=== PATIENT | female | born 1940 | race Caucasian/White ===

== ENCOUNTER 2017-08-27 19:59 | Inpatient (IN) | payer MEDICARE ==
[~2017-08-27] VITALS: Ht 162.6 cm; Wt 56.5 kg
[~2017-08-27 19:59] MED LIST: AMIT75 PO; ATOR10 PO; CLOP75 PO; LISI5 PO; OMEPRAZOLE MAGN20 MG PO; PARO20 PO; PERP2 PO; SULAR PO; ULTRA-LIGHT RO1 EACH XX
[2017-08-27 20:53] LABS: BASOPHILS ABSOLUTE AUTO 0.05 K/mm3 (0.00-0.23); BASOPHILS PERCENT AUTO 1 % (0-2); EOSINOPHILS ABSOLUTE AUTO 0.28 K/mm3 (0.00-0.68); EOSINOPHILS PERCENT AUTO 3 % (0-6); Hematocrit 38.5 % (33.0-51.0); IMMATURE GRAN ABSOLUTE AUTO 0.03 K/mm3 (0.00-0.10); IMMATURE GRAN PERCENT AUTO 0 % (0-1); LYMPHOCYTES ABSOLUTE AUTO 3.04 K/mm3 (0.84-5.20); LYMPHOCYTES PERCENT AUTO 31 % (21-46); MONOCYTES ABSOLUTE AUTO 0.59 K/mm3 (0.16-1.47); MONOCYTES PERCENT AUTO 6 % (4-13); Mean Corpuscular HGB 30.4 pg (26.0-34.0); Mean Corpuscular HGB Conc 33.8 g/dL (31.5-36.5); Mean Corpuscular Volume 90 fL (80-100); Mean Platelet Volume 10.2 fL (9.1-12.4); NEUTROPHILS ABSOLUTE AUTO 5.86 K/mm3 (1.96-9.15); NEUTROPHILS PERCENT AUTO 60 % (41-73); Platelet Count 219 K/mm3 (150-400); RDW Coefficient Variation 12.9 % (11.7-14.2); RDW Standard Deviation 42.7 fL (35.1-46.3); Red Blood Cell Count 4.27 M/mm3 (3.80-5.20); White Blood Cell Count 9.85 K/mm3 (4.00-11.30)
[2017-08-27 21:10] LABS: Albumin, Blood 3.4 g/dL (3.4-5.0); Albumin/Globulin Ratio 0.9 (0.8-1.8); Bilirubin, Total 0.3 mg/dL (0.1-1.0); Bun/Creatinine Ratio 14.4 (12.0-20.0); Calcium, Blood 9.1 mg/dL (8.5-10.1); Creatinine, Blood 2.43 mg/dL (0.40-1.00); Globulin, Blood 3.8 g/dL (2.2-4.0); Potassium, Blood 4.3 mmol/L (3.5-5.5); Total Protein, Blood 7.2 g/dL (6.4-8.2)
[2017-08-27] MEDS ORDERED: AMIT50 PO (22:33)
[2017-08-27] MEDS ORDERED: CIPR250 PO (22:35)
[2017-08-27 23:14] LABS: Source, Urine Clean Catch
[2017-08-27 23:19] LABS: Appearance, Urine Cloudy (Clear); Bilirubin, Urine Neg (Neg); Blood, Urine 3+ (Neg); Color, Urine Yellow (P-Yellow); Glucose Qualitative, Urine Neg (Neg); Ketones, Urine Neg (Neg); Leukocyte Esterase, Urine 3+ (Neg); Nitrite, Urine Neg (Neg); Protein, Urine 3+ (Neg); Urobilinogen, Urine NORM (Normal)
[2017-08-27 23:28] LABS: Bacteria Mod /hpf; Red Blood Cells, Urine 0-2 /hpf (0-2); Squamous Epithelial Cells Mod /hpf (Few); Transitional Epithelial Cells Mod /hpf (0-Rare); White Blood Cells, Urine TNTC /hpf (0-5)
[2017-08-28] MEDS ORDERED: ACET325 PO (02:26)
[2017-08-28 06:08] LABS: BASOPHILS ABSOLUTE AUTO 0.03 K/mm3 (0.00-0.23); BASOPHILS PERCENT AUTO 0 % (0-2); EOSINOPHILS ABSOLUTE AUTO 0.28 K/mm3 (0.00-0.68); EOSINOPHILS PERCENT AUTO 4 % (0-6); Hematocrit 35.5 % (33.0-51.0); Hemoglobin 11.7 g/dL (11.5-16.0); IMMATURE GRAN ABSOLUTE AUTO 0.02 K/mm3 (0.00-0.10); IMMATURE GRAN PERCENT AUTO 0 % (0-1); LYMPHOCYTES ABSOLUTE AUTO 2.36 K/mm3 (0.84-5.20); LYMPHOCYTES PERCENT AUTO 33 % (21-46); MONOCYTES ABSOLUTE AUTO 0.51 K/mm3 (0.16-1.47); MONOCYTES PERCENT AUTO 7 % (4-13); Mean Corpuscular HGB 30.4 pg (26.0-34.0); Mean Corpuscular Volume 92 fL (80-100); Mean Platelet Volume 10.1 fL (9.1-12.4); NEUTROPHILS ABSOLUTE AUTO 3.94 K/mm3 (1.96-9.15); NEUTROPHILS PERCENT AUTO 55 % (41-73); Platelet Count 192 K/mm3 (150-400); RDW Standard Deviation 43.8 fL (35.1-46.3); Red Blood Cell Count 3.85 M/mm3 (3.80-5.20); White Blood Cell Count 7.14 K/mm3 (4.00-11.30)
[2017-08-28 06:31] LABS: Albumin, Blood 2.8 g/dL (3.4-5.0); Albumin/Globulin Ratio 0.9 (0.8-1.8); Bilirubin, Total 0.2 mg/dL (0.1-1.0); Bun/Creatinine Ratio 14.2 (12.0-20.0); Calcium, Blood 8.7 mg/dL (8.5-10.1); Creatinine, Blood 2.25 mg/dL (0.40-1.00); Globulin, Blood 3.2 g/dL (2.2-4.0); Potassium, Blood 4.1 mmol/L (3.5-5.5)
[2017-08-29 06:12] LABS: Bun/Creatinine Ratio 11.4 (12.0-20.0); Calcium, Blood 9.5 mg/dL (8.5-10.1); Creatinine, Blood 2.01 mg/dL (0.40-1.00); Potassium, Blood 3.9 mmol/L (3.5-5.5)
[2017-08-30] MEDS ORDERED: CEFU500T30 PO ×2 (12:21→12:54)
[2017-08-30] MEDS ORDERED: NICO21TP TOP (12:21)
[2017-08-30] MEDS ORDERED: OLAN5 PO (12:21)
== END 2017-09-01 16:58 | disposition home health service (06) | DRG 689 ==
LOC: ER 19:59 → MEDS 08-28 00:36 → ENPENDDIS 08-31 11:16 → MEDS 08-31 21:42 → EDPENDDIS 09-01 09:00 → EDPENDDISTM 09-01 09:00 → EDPENDDISDT 09-01 09:00 → MEDS 09-01 16:58
PROVIDERS: Emergency Medicine; Internal Medicine
DX: N39.0 Urinary tract infection, site not specified (principal); G93.41 Metabolic encephalopathy; N18.4 Chronic kidney disease, stage 4 (severe); E11.22 Type 2 diabetes mellitus with diabetic chronic kidney disease; E86.0 Dehydration; B96.20 Unspecified Escherichia coli [E. coli] as the cause of diseases classified elsewhere; I12.9 Hypertensive chronic kidney disease with stage 1 through stage 4 chronic kidney disease, or unspecified chronic kidney disease; F32.9 Major depressive disorder, single episode, unspecified; F41.9 Anxiety disorder, unspecified; F03.90 Unspecified dementia, unspecified severity, without behavioral disturbance, psychotic disturbance, mood disturbance, and anxiety; F17.210 Nicotine dependence, cigarettes, uncomplicated; Z87.440 Personal history of urinary (tract) infections; Z79.02 Long term (current) use of antithrombotics/antiplatelets; Z79.899 Other long term (current) drug therapy; Z86.718 Personal history of other venous thrombosis and embolism; Z99.2 Dependence on renal dialysis
CPT/HCPCS: 36415; 71045; 80048; 80053; 81001; 83605; 85025; 87040; 87077; 87086; 87186; 96361; 96374; 97161; 97166; 97530; 97535; 99285; G8978; G8979; G8987; G8988; J0696; J1650; J2060; J3010; J7030

== ENCOUNTER → 2017-10-05 | Outpatient (CLI) | payer MEDICARE ==
[~2017-10-05] MED LIST changes: +ACET325 PO; +AMIT50 PO; +CEFU500T30 PO; +CETI5 PO; +CIPR250 PO; +DOXY100 PO; +NICO21TP TOP; +NISOLDIPINE34 MG PO; +OLAN5 PO; +PRED20 PO
[2017-10-05 18:25] LABS: Source, Urine Clean Catch
[2017-10-05 18:39] LABS: Appearance, Urine Clear (Clear); Bilirubin, Urine Neg (Neg); Blood, Urine Neg (Neg); Color, Urine Yellow (P-Yellow); Glucose Qualitative, Urine Neg (Neg); Ketones, Urine Neg (Neg); Leukocyte Esterase, Urine Neg (Neg); Nitrite, Urine Neg (Neg); Protein, Urine 1+ (Neg); Urobilinogen, Urine NORM (Normal); pH, Urine 6.5 (5.0-8.0)
== END ==
LOC: LAB SHORT 13:22 → LAB 13:22
PROVIDERS: Family Medicine
DX: N39.0 Urinary tract infection, site not specified (principal)
CPT/HCPCS: 81003

== ENCOUNTER → 2017-10-09 | Outpatient (CLI) | payer MEDICARE ==
[~2017-10-09] MED LIST changes: +AMLO5 PO; +ATEN25 PO; +BUME2 PO; +CYAN1000I PO; +GABA100 PO; +HYDHCL25 PO; +HYDR10 PO; +Keflex500 MG PO; +LISI20 PO; +MELATIN3 MG PO; +METO25ER PO; +OLAN10 PO; +Omeprazole20 M1 PO; +PARO10 PO; +POTA10T PO; +SODBIC650 PO; +Tylenol325 MG PO
[2017-10-09 16:27] LABS: BASOPHILS ABSOLUTE AUTO 0.07 K/mm3 (0.00-0.23); BASOPHILS PERCENT AUTO 1 % (0-2); EOSINOPHILS PERCENT AUTO 5 % (0-6); Hemoglobin 11.7 g/dL (11.5-16.0); IMMATURE GRAN ABSOLUTE AUTO 0.05 K/mm3 (0.00-0.10); IMMATURE GRAN PERCENT AUTO 0 % (0-1); LYMPHOCYTES ABSOLUTE AUTO 3.08 K/mm3 (0.84-5.20); LYMPHOCYTES PERCENT AUTO 22 % (21-46); MONOCYTES ABSOLUTE AUTO 0.71 K/mm3 (0.16-1.47); MONOCYTES PERCENT AUTO 5 % (4-13); Mean Corpuscular HGB 30.2 pg (26.0-34.0); Mean Corpuscular HGB Conc 32.5 g/dL (31.5-36.5); Mean Corpuscular Volume 93 fL (80-100); Mean Platelet Volume 10.6 fL (9.1-12.4); NEUTROPHILS ABSOLUTE AUTO 9.59 K/mm3 (1.96-9.15); NEUTROPHILS PERCENT AUTO 68 % (41-73); Platelet Count 259 K/mm3 (150-400); RDW Coefficient Variation 13.7 % (11.7-14.2); RDW Standard Deviation 46.3 fL (35.1-46.3); Red Blood Cell Count 3.88 M/mm3 (3.80-5.20)
[2017-10-09 16:50] LABS: Albumin, Blood 3.7 g/dL (3.4-5.0); Albumin/Globulin Ratio 0.9 (0.8-1.8); Bilirubin, Total 0.3 mg/dL (0.1-1.0); Bun/Creatinine Ratio 19.9 (12.0-20.0); Calcium, Blood 8.9 mg/dL (8.5-10.1); Creatinine, Blood 2.92 mg/dL (0.40-1.00); Globulin, Blood 3.9 g/dL (2.2-4.0); Potassium, Blood 4.9 mmol/L (3.5-5.5); Total Protein, Blood 7.6 g/dL (6.4-8.2)
== END | disposition home or self-care (01) ==
LOC: LAB SHORT 16:18 → LAB 16:18
PROVIDERS: Nurse Practitioner
DX: N39.0 Urinary tract infection, site not specified (principal); R51 Headache
CPT/HCPCS: 80053; 85025; 87077; 87086; 87186

== ENCOUNTER 2017-11-25 17:38 | Emergency (ER) | payer MEDICARE ==
[~2017-11-25] VITALS: Ht 157.5 cm; Wt 63.5 kg
[~2017-11-25 17:38] MED LIST changes: -AMLO5 PO; -ATEN25 PO; -BUME2 PO; -CETI5 PO; -CYAN1000I PO; -DOXY100 PO; -GABA100 PO; -HYDHCL25 PO; -HYDR10 PO; -Keflex500 MG PO; -LISI20 PO; -MELATIN3 MG PO; -METO25ER PO; -NISOLDIPINE34 MG PO; -OLAN10 PO; -Omeprazole20 M1 PO; -PARO10 PO; -POTA10T PO; -PRED20 PO; -SODBIC650 PO; -Tylenol325 MG PO
[2017-11-25] MEDS ORDERED: CETI5 PO (18:03)
[2017-11-25] MEDS ORDERED: DOXY100 PO (18:05)
[2017-11-25] MEDS ORDERED: NISOLDIPINE34 MG PO (18:05)
[2017-11-25] MEDS ORDERED: PARO20 PO (18:05)
[2017-11-25] MEDS ORDERED: PRED20 PO (18:06)
[2017-11-25 18:09] LABS: BASOPHILS ABSOLUTE AUTO 0.01 K/mm3 (0.00-0.23); BASOPHILS PERCENT AUTO 0 % (0-2); EOSINOPHILS ABSOLUTE AUTO 0.01 K/mm3 (0.00-0.68); EOSINOPHILS PERCENT AUTO 0 % (0-6); Hematocrit 32.6 % (33.0-51.0); Hemoglobin 10.9 g/dL (11.5-16.0); IMMATURE GRAN ABSOLUTE AUTO 0.06 K/mm3 (0.00-0.10); IMMATURE GRAN PERCENT AUTO 1 % (0-1); LYMPHOCYTES PERCENT AUTO 14 % (21-46); MONOCYTES ABSOLUTE AUTO 0.38 K/mm3 (0.16-1.47); MONOCYTES PERCENT AUTO 4 % (4-13); Mean Corpuscular HGB 31.2 pg (26.0-34.0); Mean Corpuscular HGB Conc 33.4 g/dL (31.5-36.5); Mean Corpuscular Volume 93 fL (80-100); Mean Platelet Volume 10.7 fL (9.1-12.4); NEUTROPHILS ABSOLUTE AUTO 7.86 K/mm3 (1.96-9.15); NEUTROPHILS PERCENT AUTO 82 % (41-73); Platelet Count 230 K/mm3 (150-400); RDW Coefficient Variation 13.2 % (11.7-14.2); RDW Standard Deviation 45.7 fL (35.1-46.3); Red Blood Cell Count 3.49 M/mm3 (3.80-5.20); White Blood Cell Count 9.62 K/mm3 (4.00-11.30)
[2017-11-25 18:27] LABS: Bun/Creatinine Ratio 23.5 (12.0-20.0); Calcium, Blood 8.2 mg/dL (8.5-10.1); Creatinine, Blood 3.19 mg/dL (0.40-1.00); Potassium, Blood 5.2 mmol/L (3.5-5.5)
[2017-11-25 20:23] LABS: Source, Urine Clean Catch
[2017-11-25 20:29] LABS: Appearance, Urine Clear (Clear); Bilirubin, Urine Neg (Neg); Blood, Urine Neg (Neg); Color, Urine Yellow (P-Yellow); Glucose Qualitative, Urine Neg (Neg); Ketones, Urine Neg (Neg); Leukocyte Esterase, Urine Neg (Neg); Nitrite, Urine Neg (Neg); Protein, Urine 2+ (Neg); Urobilinogen, Urine NORM (Normal)
[2017-11-25 20:40] LABS: Squamous Epithelial Cells Few /hpf (Few); Transitional Epithelial Cells Few /hpf (0-Rare)
[2017-11-25 20:41] LABS: Bacteria Not Seen /hpf; Red Blood Cells, Urine 0-2 /hpf (0-2)
== END 2017-11-25 22:43 | disposition home or self-care (01) ==
LOC: ER 17:38
PROVIDERS: Emergency Medicine
DX: I12.9 Hypertensive chronic kidney disease with stage 1 through stage 4 chronic kidney disease, or unspecified chronic kidney disease (principal); N18.4 Chronic kidney disease, stage 4 (severe); Z79.899 Other long term (current) drug therapy; Z79.2 Long term (current) use of antibiotics; F32.9 Major depressive disorder, single episode, unspecified; F17.200 Nicotine dependence, unspecified, uncomplicated
CPT/HCPCS: 36415; 80048; 81001; 85025; 96360; 99283; J7030

== ENCOUNTER 2017-12-09 10:45 | Emergency (ER) | payer MEDICARE ==
[~2017-12-09] VITALS: Ht 162.6 cm; Wt 59.0 kg
[~2017-12-09 10:45] MED LIST changes: +CETI5 PO; +DOXY100 PO; +NISOLDIPINE34 MG PO; +PRED20 PO
[2017-12-09] MEDS ORDERED: HYDHCL25 PO (14:00)
== END 2017-12-09 15:21 | disposition home or self-care (01) ==
LOC: ER 10:45
DX: L28.0 Lichen simplex chronicus (principal); Z79.899 Other long term (current) drug therapy; Z79.52 Long term (current) use of systemic steroids; I10 Essential (primary) hypertension; F17.210 Nicotine dependence, cigarettes, uncomplicated

== ENCOUNTER 2017-12-14 00:38 | Emergency (ER) | payer MEDICARE ==
[~2017-12-14] VITALS: Ht 162.6 cm; Wt 59.4 kg
[~2017-12-14 00:38] MED LIST changes: +HYDHCL25 PO
[2017-12-14 01:16] LABS: BASOPHILS ABSOLUTE AUTO 0.05 K/mm3 (0.00-0.23); BASOPHILS PERCENT AUTO 1 % (0-2); EOSINOPHILS ABSOLUTE AUTO 0.45 K/mm3 (0.00-0.68); EOSINOPHILS PERCENT AUTO 6 % (0-6); Hemoglobin 10.1 g/dL (11.5-16.0); IMMATURE GRAN ABSOLUTE AUTO 0.04 K/mm3 (0.00-0.10); IMMATURE GRAN PERCENT AUTO 1 % (0-1); LYMPHOCYTES ABSOLUTE AUTO 3.15 K/mm3 (0.84-5.20); LYMPHOCYTES PERCENT AUTO 39 % (21-46); MONOCYTES ABSOLUTE AUTO 0.47 K/mm3 (0.16-1.47); MONOCYTES PERCENT AUTO 6 % (4-13); Mean Corpuscular HGB 31.2 pg (26.0-34.0); Mean Corpuscular HGB Conc 33.7 g/dL (31.5-36.5); Mean Corpuscular Volume 93 fL (80-100); NEUTROPHILS ABSOLUTE AUTO 4.03 K/mm3 (1.96-9.15); NEUTROPHILS PERCENT AUTO 49 % (41-73); Platelet Count 241 K/mm3 (150-400); RDW Coefficient Variation 12.8 % (11.7-14.2); RDW Standard Deviation 43.8 fL (35.1-46.3); Red Blood Cell Count 3.24 M/mm3 (3.80-5.20); White Blood Cell Count 8.19 K/mm3 (4.00-11.30)
[2017-12-14 01:39] LABS: Alanine Aminotransfer (ALT/SGP 16 U/L (12-78); Albumin, Blood 2.9 g/dL (3.4-5.0); Albumin/Globulin Ratio 0.8 (0.8-1.8); Alk Phos 90 U/L (50-136); Anion Gap 10 mmol/L (6-16); Aspartate Aminotrans (AST/SGOT 17 U/L (12-37); Bilirubin, Total 0.2 mg/dL (0.1-1.0); Blood Urea Nitrogen 42 mg/dL (8-24); Bun/Creatinine Ratio 12.4 (12.0-20.0); CO2, Blood 19 mmol/L (21-32); Calcium, Blood 7.5 mg/dL (8.5-10.1); Chloride, Blood 113 mmol/L (98-108); Creatinine, Blood 3.39 mg/dL (0.40-1.00); Globulin, Blood 3.5 g/dL (2.2-4.0); Glomerular Filtration Rate 14 (60-); Glucose, Blood 90 mg/dL (70-99); Potassium, Blood 4.5 mmol/L (3.5-5.5); Sodium, Blood 142 mmol/L (136-145); Total Protein, Blood 6.4 g/dL (6.4-8.2); Troponin I <0.015 ng/mL (0.000-0.040)
== END 2017-12-14 03:20 | disposition home or self-care (01) ==
LOC: ER 00:38
PROVIDERS: Emergency Medicine
DX: I12.9 Hypertensive chronic kidney disease with stage 1 through stage 4 chronic kidney disease, or unspecified chronic kidney disease (principal); N18.9 Chronic kidney disease, unspecified; E83.51 Hypocalcemia; F41.9 Anxiety disorder, unspecified; I10 Essential (primary) hypertension; F20.9 Schizophrenia, unspecified; F17.210 Nicotine dependence, cigarettes, uncomplicated; Z79.899 Other long term (current) drug therapy; Z79.52 Long term (current) use of systemic steroids
CPT/HCPCS: 71046; 80053; 84484; 85025; 93005; 93010; 96374; 99284; J0610

== ENCOUNTER 2018-02-04 09:39 | Inpatient (IN) | payer MEDICARE ==
[~2018-02-04] VITALS: Ht 162.6 cm; Wt 61.0 kg
[2018-02-04 10:13] LABS: BASOPHILS ABSOLUTE AUTO 0.08 K/mm3 (0.00-0.23); BASOPHILS PERCENT AUTO 1 % (0-2); EOSINOPHILS ABSOLUTE AUTO 0.38 K/mm3 (0.00-0.68); EOSINOPHILS PERCENT AUTO 5 % (0-6); Hematocrit 35.6 % (33.0-51.0); Hemoglobin 11.3 g/dL (11.5-16.0); IMMATURE GRAN ABSOLUTE AUTO 0.06 K/mm3 (0.00-0.10); IMMATURE GRAN PERCENT AUTO 1 % (0-1); LYMPHOCYTES ABSOLUTE AUTO 1.68 K/mm3 (0.84-5.20); LYMPHOCYTES PERCENT AUTO 20 % (21-46); MONOCYTES ABSOLUTE AUTO 0.57 K/mm3 (0.16-1.47); MONOCYTES PERCENT AUTO 7 % (4-13); Mean Corpuscular HGB 30.5 pg (26.0-34.0); Mean Corpuscular HGB Conc 31.7 g/dL (31.5-36.5); Mean Corpuscular Volume 96 fL (80-100); Mean Platelet Volume 10.8 fL (9.1-12.4); NEUTROPHILS ABSOLUTE AUTO 5.48 K/mm3 (1.96-9.15); NEUTROPHILS PERCENT AUTO 66 % (41-73); Platelet Count 223 K/mm3 (150-400); RDW Coefficient Variation 13.9 % (11.7-14.2); RDW Standard Deviation 48.5 fL (35.1-46.3); Red Blood Cell Count 3.71 M/mm3 (3.80-5.20); White Blood Cell Count 8.25 K/mm3 (4.00-11.30)
[2018-02-04 10:32] LABS: Alanine Aminotransfer (ALT/SGP 24 U/L (12-78); Albumin/Globulin Ratio 0.9 (0.8-1.8); Alk Phos 101 U/L (50-136); Anion Gap 10 mmol/L (6-16); Aspartate Aminotrans (AST/SGOT 18 U/L (12-37); Bilirubin, Total 0.4 mg/dL (0.1-1.0); Blood Urea Nitrogen 46 mg/dL (8-24); Bun/Creatinine Ratio 12.7 (12.0-20.0); CO2, Blood 20 mmol/L (21-32); Calcium, Blood 7.9 mg/dL (8.5-10.1); Chloride, Blood 115 mmol/L (98-108); Creatinine, Blood 3.63 mg/dL (0.40-1.00); Globulin, Blood 3.3 g/dL (2.2-4.0); Glomerular Filtration Rate 13 (60-); Glucose, Blood 116 mg/dL (70-99); Potassium, Blood 4.1 mmol/L (3.5-5.5); Sodium, Blood 145 mmol/L (136-145); Total Protein, Blood 6.3 g/dL (6.4-8.2); Troponin I <0.015 ng/mL (0.000-0.040)
[2018-02-04] MEDS ORDERED: CLOP75 PO (12:42)
[2018-02-04] MEDS ORDERED: GABA100 PO (12:42)
[2018-02-04] MEDS ORDERED: ATEN25 PO (12:42)
[2018-02-04] MEDS ORDERED: LISI5 PO (12:43)
[2018-02-04] MEDS ORDERED: OLAN10 PO (12:43)
[2018-02-04] MEDS ORDERED: NICO21TP TOP (12:43)
[2018-02-04] MEDS ORDERED: PARO10 PO (12:44)
[2018-02-04] MEDS ORDERED: Omeprazole20 M1 PO (12:44)
[2018-02-04] MEDS ORDERED: CYAN1000I PO (12:45)
[2018-02-04] MEDS ORDERED: SODBIC650 PO (12:45)
[2018-02-04 17:48] LABS: Source, Urine Clean Catch
[2018-02-04 17:50] LABS: Bilirubin, Urine Neg (Neg); Blood, Urine Neg (Neg); Glucose Qualitative, Urine Neg (Neg); Ketones, Urine Neg (Neg); Leukocyte Esterase, Urine Neg (Neg); Nitrite, Urine Neg (Neg); Protein, Urine 2+ (Neg); Urobilinogen, Urine NORM (Normal)
[2018-02-04 17:55] LABS: Appearance, Urine Clear (Clear); Color, Urine Yellow (P-Yellow)
[2018-02-04 17:56] LABS: Bacteria Few /hpf; Red Blood Cells, Urine 0-2 /hpf (0-2); Squamous Epithelial Cells Not Seen /hpf (Few); White Blood Cells, Urine 0-2 /hpf (0-5)
[2018-02-05 05:27] LABS: BASOPHILS ABSOLUTE AUTO 0.06 K/mm3 (0.00-0.23); BASOPHILS PERCENT AUTO 1 % (0-2); EOSINOPHILS ABSOLUTE AUTO 0.49 K/mm3 (0.00-0.68); EOSINOPHILS PERCENT AUTO 5 % (0-6); Hematocrit 32.3 % (33.0-51.0); Hemoglobin 10.5 g/dL (11.5-16.0); IMMATURE GRAN ABSOLUTE AUTO 0.04 K/mm3 (0.00-0.10); IMMATURE GRAN PERCENT AUTO 0 % (0-1); LYMPHOCYTES ABSOLUTE AUTO 2.62 K/mm3 (0.84-5.20); LYMPHOCYTES PERCENT AUTO 27 % (21-46); MONOCYTES PERCENT AUTO 7 % (4-13); Mean Corpuscular HGB 30.1 pg (26.0-34.0); Mean Corpuscular HGB Conc 32.5 g/dL (31.5-36.5); Mean Platelet Volume 10.9 fL (9.1-12.4); NEUTROPHILS ABSOLUTE AUTO 5.81 K/mm3 (1.96-9.15); NEUTROPHILS PERCENT AUTO 60 % (41-73); Platelet Count 214 K/mm3 (150-400); RDW Coefficient Variation 13.9 % (11.7-14.2); RDW Standard Deviation 46.7 fL (35.1-46.3); Red Blood Cell Count 3.49 M/mm3 (3.80-5.20); White Blood Cell Count 9.72 K/mm3 (4.00-11.30)
[2018-02-05 05:28] LABS: Mean Corpuscular Volume 93 fL (80-100)
[2018-02-05 05:44] LABS: Albumin, Blood 2.7 g/dL (3.4-5.0); Anion Gap 11 mmol/L (6-16); Blood Urea Nitrogen 50 mg/dL (8-24); Bun/Creatinine Ratio 13.7 (12.0-20.0); CO2, Blood 20 mmol/L (21-32); Calcium, Blood 7.8 mg/dL (8.5-10.1); Chloride, Blood 112 mmol/L (98-108); Creatinine, Blood 3.66 mg/dL (0.40-1.00); Glomerular Filtration Rate 13 (60-); Glucose, Blood 96 mg/dL (70-99); Phosphorus, Blood 3.6 mg/dL (2.5-4.9); Potassium, Blood 3.9 mmol/L (3.5-5.5); Sodium, Blood 143 mmol/L (136-145)
[2018-02-06 05:24] LABS: BASOPHILS ABSOLUTE AUTO 0.07 K/mm3 (0.00-0.23); BASOPHILS PERCENT AUTO 1 % (0-2); EOSINOPHILS ABSOLUTE AUTO 0.58 K/mm3 (0.00-0.68); EOSINOPHILS PERCENT AUTO 6 % (0-6); Hematocrit 35.5 % (33.0-51.0); Hemoglobin 11.6 g/dL (11.5-16.0); IMMATURE GRAN ABSOLUTE AUTO 0.04 K/mm3 (0.00-0.10); IMMATURE GRAN PERCENT AUTO 0 % (0-1); LYMPHOCYTES ABSOLUTE AUTO 2.63 K/mm3 (0.84-5.20); LYMPHOCYTES PERCENT AUTO 27 % (21-46); MONOCYTES ABSOLUTE AUTO 0.74 K/mm3 (0.16-1.47); MONOCYTES PERCENT AUTO 8 % (4-13); Mean Corpuscular HGB Conc 32.7 g/dL (31.5-36.5); Mean Corpuscular Volume 92 fL (80-100); NEUTROPHILS ABSOLUTE AUTO 5.54 K/mm3 (1.96-9.15); NEUTROPHILS PERCENT AUTO 58 % (41-73); Platelet Count 227 K/mm3 (150-400); RDW Coefficient Variation 13.9 % (11.7-14.2); RDW Standard Deviation 45.5 fL (35.1-46.3); Red Blood Cell Count 3.87 M/mm3 (3.80-5.20)
[2018-02-06 05:49] LABS: Anion Gap 11 mmol/L (6-16); Blood Urea Nitrogen 53 mg/dL (8-24); Bun/Creatinine Ratio 14.2 (12.0-20.0); CO2, Blood 23 mmol/L (21-32); Calcium, Blood 8.1 mg/dL (8.5-10.1); Chloride, Blood 110 mmol/L (98-108); Creatinine, Blood 3.73 mg/dL (0.40-1.00); Glomerular Filtration Rate 12 (60-); Glucose, Blood 95 mg/dL (70-99); Potassium, Blood 4.1 mmol/L (3.5-5.5); Sodium, Blood 144 mmol/L (136-145)
[2018-02-07 04:23] LABS: BASOPHILS ABSOLUTE AUTO 0.06 K/mm3 (0.00-0.23); BASOPHILS PERCENT AUTO 1 % (0-2); EOSINOPHILS ABSOLUTE AUTO 0.55 K/mm3 (0.00-0.68); EOSINOPHILS PERCENT AUTO 6 % (0-6); Hematocrit 35.9 % (33.0-51.0); Hemoglobin 11.9 g/dL (11.5-16.0); IMMATURE GRAN ABSOLUTE AUTO 0.04 K/mm3 (0.00-0.10); IMMATURE GRAN PERCENT AUTO 0 % (0-1); LYMPHOCYTES ABSOLUTE AUTO 3.52 K/mm3 (0.84-5.20); LYMPHOCYTES PERCENT AUTO 38 % (21-46); MONOCYTES ABSOLUTE AUTO 0.66 K/mm3 (0.16-1.47); MONOCYTES PERCENT AUTO 7 % (4-13); Mean Corpuscular HGB 30.4 pg (26.0-34.0); Mean Corpuscular HGB Conc 33.1 g/dL (31.5-36.5); Mean Corpuscular Volume 92 fL (80-100); Mean Platelet Volume 10.8 fL (9.1-12.4); NEUTROPHILS ABSOLUTE AUTO 4.48 K/mm3 (1.96-9.15); NEUTROPHILS PERCENT AUTO 48 % (41-73); Platelet Count 220 K/mm3 (150-400); RDW Coefficient Variation 13.8 % (11.7-14.2); RDW Standard Deviation 45.4 fL (35.1-46.3); Red Blood Cell Count 3.92 M/mm3 (3.80-5.20); White Blood Cell Count 9.31 K/mm3 (4.00-11.30)
[2018-02-07 04:40] LABS: Anion Gap 11 mmol/L (6-16); Blood Urea Nitrogen 57 mg/dL (8-24); Bun/Creatinine Ratio 15.9 (12.0-20.0); CO2, Blood 24 mmol/L (21-32); Calcium, Blood 8.1 mg/dL (8.5-10.1); Chloride, Blood 105 mmol/L (98-108); Creatinine, Blood 3.59 mg/dL (0.40-1.00); Glomerular Filtration Rate 13 (60-); Glucose, Blood 94 mg/dL (70-99); Phosphorus, Blood 4.2 mg/dL (2.5-4.9); Potassium, Blood 4.4 mmol/L (3.5-5.5); Sodium, Blood 140 mmol/L (136-145)
[2018-02-07] MEDS ORDERED: METO25ER PO (15:42)
[2018-02-07] MEDS ORDERED: LISI20 PO (15:44)
[2018-02-07] MEDS ORDERED: Tylenol325 MG PO (15:48)
[2018-02-07] MEDS ORDERED: AMLO5 PO (15:49)
[2018-02-07] MEDS ORDERED: BUME2 PO (15:50)
[2018-02-07] MEDS ORDERED: MELATIN3 MG PO (15:51)
[2018-02-07] MEDS ORDERED: POTA10T PO (15:52)
[2018-02-07] MEDS ORDERED: HYDR10 PO (15:52)
== END 2018-02-07 15:59 | disposition home or self-care (01) | DRG 682 ==
LOC: ER 09:39 → MEDS 09:40
PROVIDERS: Emergency Medicine; Family Medicine
DX: I13.11 Hypertensive heart and chronic kidney disease without heart failure, with stage 5 chronic kidney disease, or end stage renal disease (principal); I50.33 Acute on chronic diastolic (congestive) heart failure; N18.5 Chronic kidney disease, stage 5; N17.9 Acute kidney failure, unspecified; F20.9 Schizophrenia, unspecified; F41.0 Panic disorder [episodic paroxysmal anxiety]; F41.9 Anxiety disorder, unspecified; E87.70 Fluid overload, unspecified; E78.5 Hyperlipidemia, unspecified; I77.0 Arteriovenous fistula, acquired; K21.9 Gastro-esophageal reflux disease without esophagitis; E11.22 Type 2 diabetes mellitus with diabetic chronic kidney disease; E11.51 Type 2 diabetes mellitus with diabetic peripheral angiopathy without gangrene; F17.210 Nicotine dependence, cigarettes, uncomplicated; R25.2 Cramp and spasm; Z66 Do not resuscitate
CPT/HCPCS: 36415; 71046; 80053; 80069; 81001; 83880; 84484; 85025; 93005; 93010; 94762; J0360; J1650

== ENCOUNTER 2018-02-14 07:11 | Emergency (ER) | payer MEDICARE ==
[~2018-02-14] VITALS: Ht 162.6 cm; Wt 56.7 kg
[~2018-02-14 07:11] MED LIST changes: +AMLO5 PO; +ATEN25 PO; +BUME2 PO; +CYAN1000I PO; +GABA100 PO; +HYDR10 PO; +LISI20 PO; +MELATIN3 MG PO; +METO25ER PO; +OLAN10 PO; +Omeprazole20 M1 PO; +PARO10 PO; +POTA10T PO; +SODBIC650 PO; +Tylenol325 MG PO
[2018-02-14 10:01] LABS: BASOPHILS ABSOLUTE AUTO 0.09 K/mm3 (0.00-0.23); BASOPHILS PERCENT AUTO 1 % (0-2); EOSINOPHILS ABSOLUTE AUTO 0.48 K/mm3 (0.00-0.68); EOSINOPHILS PERCENT AUTO 4 % (0-6); Hemoglobin 13.6 g/dL (11.5-16.0); IMMATURE GRAN ABSOLUTE AUTO 0.05 K/mm3 (0.00-0.10); IMMATURE GRAN PERCENT AUTO 0 % (0-1); LYMPHOCYTES ABSOLUTE AUTO 2.51 K/mm3 (0.84-5.20); LYMPHOCYTES PERCENT AUTO 20 % (21-46); MONOCYTES ABSOLUTE AUTO 0.73 K/mm3 (0.16-1.47); MONOCYTES PERCENT AUTO 6 % (4-13); Mean Corpuscular HGB 30.6 pg (26.0-34.0); Mean Corpuscular HGB Conc 31.6 g/dL (31.5-36.5); Mean Platelet Volume 10.6 fL (9.1-12.4); NEUTROPHILS ABSOLUTE AUTO 8.56 K/mm3 (1.96-9.15); NEUTROPHILS PERCENT AUTO 69 % (41-73); Platelet Count 222 K/mm3 (150-400); RDW Coefficient Variation 13.3 % (11.7-14.2); RDW Standard Deviation 47.1 fL (35.1-46.3); Red Blood Cell Count 4.44 M/mm3 (3.80-5.20); White Blood Cell Count 12.42 K/mm3 (4.00-11.30)
[2018-02-14 10:02] LABS: Mean Corpuscular Volume 97 fL (80-100)
[2018-02-14 10:31] LABS: Alanine Aminotransfer (ALT/SGP 14 U/L (12-78); Albumin, Blood 3.5 g/dL (3.4-5.0); Albumin/Globulin Ratio 0.9 (0.8-1.8); Alk Phos 81 U/L (50-136); Anion Gap 12 mmol/L (6-16); Aspartate Aminotrans (AST/SGOT 28 U/L (12-37); Bilirubin, Total 0.6 mg/dL (0.1-1.0); Blood Urea Nitrogen 62 mg/dL (8-24); Bun/Creatinine Ratio 16.4 (12.0-20.0); CO2, Blood 21 mmol/L (21-32); Calcium, Blood 9.2 mg/dL (8.5-10.1); Chloride, Blood 106 mmol/L (98-108); Creatinine, Blood 3.78 mg/dL (0.40-1.00); Globulin, Blood 3.7 g/dL (2.2-4.0); Glomerular Filtration Rate 12 (60-); Glucose, Blood 94 mg/dL (70-99); Potassium, Blood 5.5 mmol/L (3.5-5.5); Sodium, Blood 139 mmol/L (136-145); Total Protein, Blood 7.2 g/dL (6.4-8.2); Troponin I <0.015 ng/mL (0.000-0.040)
[2018-02-14 11:35] LABS: Source, Urine Clean Catch
[2018-02-14 11:45] LABS: Bilirubin, Urine Neg (Neg); Blood, Urine 5+ (Neg); Glucose Qualitative, Urine Neg (Neg); Ketones, Urine Neg (Neg); Leukocyte Esterase, Urine 3+ (Neg); Nitrite, Urine Neg (Neg); Protein, Urine 2+ (Neg); Specific Gravity, Urine 1.015 (1.003-1.022); Urobilinogen, Urine NORM (Normal)
[2018-02-14 12:09] LABS: Appearance, Urine Cloudy (Clear); Color, Urine Yellow (P-Yellow)
[2018-02-14 12:11] LABS: Red Blood Cells, Urine 25-50 /hpf (0-2); White Blood Cells, Urine TNTC /hpf (0-5)
[2018-02-14 12:12] LABS: Bacteria Few /hpf; Renal Epithelial Few /hpf (0-Rare); Squamous Epithelial Cells Not Seen /hpf (Few)
[2018-02-14] MEDS ORDERED: Keflex500 MG PO (12:26)
== END 2018-02-14 12:50 | disposition home or self-care (01) ==
LOC: ER 07:11
PROVIDERS: Psychiatry & Neurology Psychiatry
DX: S00.83XA Contusion of other part of head, initial encounter (principal); S40.011A Contusion of right shoulder, initial encounter; S60.211A Contusion of right wrist, initial encounter; I10 Essential (primary) hypertension; F17.210 Nicotine dependence, cigarettes, uncomplicated; Z79.899 Other long term (current) drug therapy; Z79.01 Long term (current) use of anticoagulants; W18.30XA Fall on same level, unspecified, initial encounter; Y92.002 Bathroom of unspecified non-institutional (private) residence as the place of occurrence of the external cause
CPT/HCPCS: 36415; 51701; 70450; 73030; 73110; 73130; 80053; 81001; 83880; 83970; 84484; 85025; 87086; 93005; 93010; 99285-25

== ENCOUNTER → 2018-03-10 | Outpatient (CLI) | payer MEDICARE ==
[~2018-03-10] MED LIST changes: +Keflex500 MG PO
[2018-03-10 18:20] LABS: Appearance, Urine Hazy (Clear); Bilirubin, Urine Neg (Neg); Blood, Urine Neg (Neg); Color, Urine Yellow (P-Yellow); Glucose Qualitative, Urine Neg (Neg); Ketones, Urine Neg (Neg); Leukocyte Esterase, Urine 3+ (Neg); Nitrite, Urine Neg (Neg); Protein, Urine 2+ (Neg); Urobilinogen, Urine NORM (Normal)
[2018-03-10 19:04] LABS: Red Blood Cells, Urine 0-2 /hpf (0-2); Squamous Epithelial Cells Few /hpf (Few); White Blood Cells, Urine 25-50 /hpf (0-5)
[2018-03-10 19:05] LABS: Bacteria Mod /hpf
== END ==
LOC: LAB SHORT 07:32 → LAB 07:32
PROVIDERS: Nurse Practitioner Family
DX: N39.0 Urinary tract infection, site not specified (principal)
CPT/HCPCS: 81001; 87077; 87086; 87186

== ENCOUNTER → 2018-03-25 | Outpatient (CLI) | payer MEDICARE ==
[2018-03-25 14:34] LABS: Bilirubin, Urine Neg (Neg); Blood, Urine Neg (Neg); Glucose Qualitative, Urine Neg (Neg); Ketones, Urine Neg (Neg); Leukocyte Esterase, Urine Neg (Neg); Nitrite, Urine Neg (Neg); Protein, Urine 2+ (Neg); Urobilinogen, Urine NORM (Normal)
[2018-03-25 14:55] LABS: Appearance, Urine Clear (Clear); Color, Urine Yellow (P-Yellow)
[2018-03-25 14:56] LABS: Bacteria Not Seen /hpf; Red Blood Cells, Urine 0-2 /hpf (0-2); Squamous Epithelial Cells Rare /hpf (Few); White Blood Cells, Urine Not Seen /hpf (0-5)
== END ==
LOC: LAB SHORT 11:30 → LAB 11:30
PROVIDERS: Nurse Practitioner Family
DX: N39.0 Urinary tract infection, site not specified (principal)
CPT/HCPCS: 81001; 87077; 87086; 87186

== ENCOUNTER 2018-09-16 11:57 | Emergency (ER) | payer MEDICARE ==
[~2018-09-16] VITALS: Ht 162.6 cm; Wt 63.5 kg
[2018-09-16 13:02] LABS: Albumin, Blood 3.5 g/dL (3.4-5.0); Bilirubin, Total 0.4 mg/dL (0.1-1.0); Bun/Creatinine Ratio 11.2 (12.0-20.0); Calcium, Blood 9.3 mg/dL (8.5-10.1); Globulin, Blood 3.6 g/dL (2.2-4.0); Potassium, Blood 4.4 mmol/L (3.5-5.5); Total Protein, Blood 7.1 g/dL (6.4-8.2)
[2018-09-16] MEDS ORDERED: ACIDOPHILUS CA1 EACH PO (13:20)
[2018-09-16] MEDS ORDERED: AMLO5 PO (13:20)
[2018-09-16] MEDS ORDERED: BUME2 PO (13:21)
[2018-09-16] MEDS ORDERED: CLOP75 PO (13:21)
[2018-09-16] MEDS ORDERED: GABA100 PO (13:21)
[2018-09-16] MEDS ORDERED: HYDR10 PO (13:21)
[2018-09-16] MEDS ORDERED: METO25ER PO (13:22)
[2018-09-16] MEDS ORDERED: LORA.5 PO (13:22)
[2018-09-16] MEDS ORDERED: OLAN5 PO (13:22)
[2018-09-16] MEDS ORDERED: LISI20 PO (13:22)
[2018-09-16] MEDS ORDERED: Omeprazole20 M1 PO (13:23)
[2018-09-16] MEDS ORDERED: CYAN500 PO (13:23)
[2018-09-16] MEDS ORDERED: PARO10 PO (13:23)
== END 2018-09-16 14:17 | disposition home or self-care (01) ==
LOC: ER 11:57
PROVIDERS: Emergency Medicine
DX: R53.83 Other fatigue (principal); Z79.899 Other long term (current) drug therapy; I10 Essential (primary) hypertension; F17.210 Nicotine dependence, cigarettes, uncomplicated
CPT/HCPCS: 36415; 80053; 85018; 93005; 93010; 99284-25

== ENCOUNTER → 2018-11-11 | Outpatient (CLI) | payer MEDICARE, OTHER ==
[~2018-11-11] MED LIST changes: +ACIDOPHILUS CA1 EACH PO; +CYAN500 PO; +LORA.5 PO
[2018-11-11 13:58] LABS: Hemoglobin 10.5 g/dL (11.5-16.0); Mean Corpuscular HGB 32.3 pg (26.0-34.0); Mean Corpuscular HGB Conc 32.8 g/dL (31.5-36.5); Mean Corpuscular Volume 99 fL (80-100); Mean Platelet Volume 10.4 fL (9.1-12.4); Platelet Count 230 K/mm3 (150-400); RDW Coefficient Variation 13.1 % (11.7-14.2); Red Blood Cell Count 3.25 M/mm3 (3.80-5.20); White Blood Cell Count 6.71 K/mm3 (4.00-11.30)
[2018-11-11 14:27] LABS: Albumin, Blood 3.3 g/dL (3.4-5.0); Bilirubin, Total 0.4 mg/dL (0.1-1.0); Bun/Creatinine Ratio 11.1 (12.0-20.0); Calcium, Blood 9.7 mg/dL (8.5-10.1); Creatinine, Blood 5.21 mg/dL (0.40-1.00); Globulin, Blood 3.4 g/dL (2.2-4.0); Potassium, Blood 4.6 mmol/L (3.5-5.5); Total Protein, Blood 6.7 g/dL (6.4-8.2)
== END | disposition home or self-care (01) ==
LOC: LAB SHORT 13:38 → LAB 13:38
PROVIDERS: Nurse Practitioner Family
DX: I25.10 Atherosclerotic heart disease of native coronary artery without angina pectoris (principal); N18.4 Chronic kidney disease, stage 4 (severe)
CPT/HCPCS: 80053; 85027

== ENCOUNTER → 2019-06-01 | Outpatient (CLI) | payer MEDICARE, OTHER ==
[2019-06-02 15:35] LABS: Source, Urine Clean Catch
[2019-06-02 16:31] LABS: Bilirubin, Urine Neg (Neg); Blood, Urine Neg (Neg); Glucose Qualitative, Urine Neg (Neg); Ketones, Urine Neg (Neg); Leukocyte Esterase, Urine Neg (Neg); Nitrite, Urine Neg (Neg); Protein, Urine 2+ (Neg); Urobilinogen, Urine NORM (Normal)
[2019-06-02 16:39] LABS: Appearance, Urine Clear (Clear); Color, Urine Yellow (P-Yellow)
[2019-06-02 16:40] LABS: Bacteria Mod /hpf; Red Blood Cells, Urine Not Seen /hpf (0-2); Squamous Epithelial Cells Rare /hpf (Few); White Blood Cells, Urine Rare /hpf (0-5)
== END ==
LOC: LAB 15:26 → LAB SHORT 15:26
PROVIDERS: Nurse Practitioner Family
DX: N39.0 Urinary tract infection, site not specified (principal)
CPT/HCPCS: 81001; 87086

== ENCOUNTER 2019-10-11 19:15 | Emergency (ER) | payer MEDICARE, OTHER ==
[~2019-10-11] VITALS: Ht 162.6 cm; Wt 61.2 kg
[~2019-10-11 19:15] MED LIST changes: -ACIDOPHILUS CA1 EACH PO; -CYAN500 PO; -LORA.5 PO
[2019-10-11 19:32] LABS: Hematocrit 38.3 % (33.0-51.0); Hemoglobin 12.5 g/dL (11.5-16.0); Mean Corpuscular HGB 32.7 pg (26.0-34.0); Mean Corpuscular HGB Conc 32.6 g/dL (31.5-36.5); Mean Corpuscular Volume 100 fL (80-100); Mean Platelet Volume 9.6 fL (9.1-12.4); Platelet Count 291 K/mm3 (150-400); RDW Coefficient Variation 13.4 % (11.7-14.2); RDW Standard Deviation 49.7 fL (35.1-46.3); Red Blood Cell Count 3.82 M/mm3 (3.80-5.20); White Blood Cell Count 9.31 K/mm3 (4.00-11.30)
[2019-10-11 19:47] LABS: Bun/Creatinine Ratio 9.5 (12.0-20.0); Calcium, Blood 9.6 mg/dL (8.5-10.1); Creatinine, Blood 4.43 mg/dL (0.40-1.00); Potassium, Blood 5.4 mmol/L (3.5-5.5)
[2019-10-11] MEDS ORDERED: acidophilus PO (19:54)
[2019-10-11] MEDS ORDERED: AMLO5 PO (19:54)
[2019-10-11] MEDS ORDERED: Bumetanide2 MG PO (19:55)
[2019-10-11] MEDS ORDERED: GABA100 PO (19:56)
[2019-10-11] MEDS ORDERED: CLOP75 PO (19:56)
[2019-10-11] MEDS ORDERED: LISI20 PO (19:57)
[2019-10-11] MEDS ORDERED: OLAN5 PO (19:58)
[2019-10-11] MEDS ORDERED: Omeprazole20 M1 PO (19:59)
[2019-10-11] MEDS ORDERED: CYAN500 PO (20:00)
[2019-10-11] MEDS ORDERED: OLAN2.5 PO (20:00)
[2019-10-11] MEDS ORDERED: Vitamin D2000 UNIT PO (20:01)
[2019-10-11] MEDS ORDERED: Flonase 0.05% N16 GM (20:01)
[2019-10-11] MEDS ORDERED: NYAMYC15 GM TOP (20:02)
[2019-10-11] MEDS ORDERED: ACET500 PO (20:03)
[2019-10-11] MEDS ORDERED: ZYRTEC10 M2 PO (20:04)
[2019-10-11] MEDS ORDERED: ALPR.25 PO ×2 (20:04→20:08)
[2019-10-11] MEDS ORDERED: ESCITALOPRAM OXA5 MG PO (20:05)
[2019-10-11] MEDS ORDERED: CINA30 PO (20:05)
[2019-10-11] MEDS ORDERED: ACET325 PO (20:08)
[2019-10-11] MEDS ORDERED: MELA3 PO (20:10)
[2019-10-11] MEDS ORDERED: Anti-Diarrheal2 MG PO (20:11)
[2019-10-11] MEDS ORDERED: Ultram50 MG PO (20:20)
== END 2019-10-11 21:05 | disposition home or self-care (01) ==
LOC: ER 19:15
PROVIDERS: Emergency Medicine
DX: S40.011A Contusion of right shoulder, initial encounter (principal); I10 Essential (primary) hypertension; E78.5 Hyperlipidemia, unspecified; J44.9 Chronic obstructive pulmonary disease, unspecified; N19 Unspecified kidney failure; W19.XXXA Unspecified fall, initial encounter
CPT/HCPCS: 73030; 80048; 85027; 96374; 96375; 99284-25; J0360; J1170

== ENCOUNTER → 2019-11-02 | Outpatient (CLI) | payer MEDICARE, OTHER ==
[~2019-11-02] MED LIST changes: +ACET500 PO; +ALPR.25 PO; +Anti-Diarrheal2 MG PO; +Bumetanide2 MG PO; +CINA30 PO; +CYAN500 PO; +ESCITALOPRAM OXA5 MG PO; +Flonase 0.05% N16 GM; +MELA3 PO; +NYAMYC15 GM TOP; +OLAN2.5 PO; +Ultram50 MG PO; +Vitamin D2000 UNIT PO; +ZYRTEC10 M2 PO; +acidophilus PO
[2019-11-02 16:09] LABS: Bilirubin, Urine Neg (Neg); Blood, Urine Neg (Neg); Glucose Qualitative, Urine Neg (Neg); Ketones, Urine Neg (Neg); Leukocyte Esterase, Urine Neg (Neg); Nitrite, Urine Neg (Neg); Protein, Urine 1+ (Neg); Urobilinogen, Urine NORM (Normal)
[2019-11-02 16:27] LABS: Appearance, Urine Clear (Clear); Color, Urine Pale Yellow (P-Yellow)
== END | disposition home or self-care (01) ==
LOC: LAB SHORT 14:15 → LAB 14:15
PROVIDERS: Nurse Practitioner Family
DX: N39.0 Urinary tract infection, site not specified (principal)
CPT/HCPCS: 81003